=== PATIENT | female | born 1990 | race Caucasian/White ===

== ENCOUNTER 2017-01-11 13:13 | Emergency (ER) | payer OTHER ==
[~2017-01-11] VITALS: Ht 154.9 cm; Wt 53.1 kg
[2017-01-11 13:19] VITALS: BP 147/64
== END 2017-01-11 16:54 | disposition home or self-care (01) ==
LOC: ED 13:13
DX: R19.7 Diarrhea, unspecified (principal); J02.9 Acute pharyngitis, unspecified; M79.1 Myalgia
CPT/HCPCS: 87046; 87046-59